=== PATIENT | female | born 1985 | race African-American/Black ===

== ENCOUNTER 2018-01-19 17:28 | Inpatient (IN) | payer OTHER ==
[~2018-01-19] VITALS: Ht 152.4 cm; Wt 118.3 kg
[2018-01-19] MEDS ORDERED: SODIUM CHLORIDE FLUSH 10ML SYR IVF ONE (18:00)
[2018-01-19] MEDS ORDERED: SODIUM CHLORIDE 0.9% 1,000ML IVBOLUS ONE (18:00)
[2018-01-19 18:29] LABS: MICROSCOPIC INDICATED
[2018-01-19 18:37] LABS: CULTURE INDICATED? NO
[2018-01-19 19:15] LABS: PH, VENOUS 7.372 pH (7.320-7.420)
[2018-01-19 19:17] LABS: FIO2 RA %
[2018-01-19] MEDS ORDERED: ACETAMINOPHEN 325 MG TABLET ONE (19:18)
[2018-01-19 19:26] LABS: ANION GAP 10 mmol/L (5-15); CALCIUM 9.1 mg/dL (8.5-10.1); CHLORIDE 94 mmol/L (98-107); CREATININE 1.27 mg/dL (0.55-1.02)
[2018-01-19] MEDS ORDERED: PLEASE ENTER ALLERGIES MC SCH (19:30)
[2018-01-19] MEDS ORDERED: ACETAMINOPHEN 325 MG TABLET PO ONE (19:30)
[2018-01-19 19:31] LABS: BASOPHILS # (AUTO) 0.03 x10^3/uL (0-0.1); BASOPHILS % (AUTO) 0 % (0-1); EOSINOPHILS # (AUTO) 0.13 x10^3/uL (0-0.4); EOSINOPHILS % (AUTO) 2 % (1-7); LYMPHOCYTES # (AUTO) 2.24 x10^3/uL (1-3.4); LYMPHOCYTES % (AUTO) 25 % (22-44); MD NO; MEAN CORPUSCULAR HEMOGLOBIN 29.3 pg (27.0-34.8); MEAN CORPUSCULAR HGB CONC 32.7 g/dL (32.4-35.8); MEAN CORPUSCULAR VOLUME 89.4 fL (80-100); MEAN PLATELET VOLUME 11.4 fL (7.4-10.4); MONOCYTES # (AUTO) 0.89 x10^3/uL (0.2-0.8); MONOCYTES % (AUTO) 10 % (2-9); NEUTROPHILS # (AUTO) 5.71 x10^3/uL (1.8-6.8); NEUTROPHILS % (AUTO) 64 % (42-75); PLATELET COUNT 332 x10^3/uL (130-400); RED BLOOD COUNT 4.96 x10^6/uL (3.82-5.3); RED CELL DISTRIBUTION WIDTH 14.3 % (9.6-15.2)
[2018-01-19 19:42] LABS: ACETONE, SERUM Moderate(40mg/dL) mg/dL (Negative)
[2018-01-19] MEDS ORDERED: SODIUM CHLORIDE FLUSH 10ML SYR IVF PRN (20:30)
[2018-01-19] MEDS ORDERED: SODIUM CHLORIDE 0.45% 1,000 ML IV SCH (20:50)
[2018-01-19] MEDS ORDERED: D5%-0.45% NACL 1,000 ML IV PRN (20:50)
[2018-01-19] MEDS ORDERED: REGULAR INSULIN 62.5 UNITS in SODIUM CHLORIDE 0.9% 249.375 ML IV PRN (20:50)
[2018-01-19] MEDS ORDERED: INSULIN REGULAR 100 UNITS/ML, 3ML VIAL IVPush ONE (21:00)
[2018-01-19] MEDS ORDERED: ONDANSETRON 2MG/ML, 2ML IVPush PRN (21:00)
[2018-01-19 21:35] LABS: HEMOGLOBIN A1C 14.3 % (4.2-6.3)
[2018-01-19] MEDS ORDERED: ENOXAPARIN 40 MG/0.4 ML ONE (21:37)
[2018-01-19] MEDS ORDERED: INSULIN REGULAR 100 UNITS/ML, 3ML VIAL ONE (21:39)
[2018-01-19] MEDS: ENOXAPARIN 40 MG/0.4 ML SQ SCH (21:44)
[2018-01-19 22:34] VITALS: BP 136/86
[2018-01-19 23:47] LABS: ANION GAP 10 mmol/L (5-15); CALCIUM 8.9 mg/dL (8.5-10.1); CHLORIDE 101 mmol/L (98-107); CREATININE 0.92 mg/dL (0.55-1.02)
[2018-01-20 03:22] LABS: ANION GAP 8 mmol/L (5-15); CALCIUM 8.9 mg/dL (8.5-10.1); CHLORIDE 106 mmol/L (98-107); CREATININE 0.71 mg/dL (0.55-1.02)
[2018-01-20 04:00] VITALS: BP 126/41
[2018-01-20] MEDS ORDERED: POTASSIUM CHLORIDE 20 MEQ TAB.ER.PRT PO ONE ×2 (04:00→08:00)
[2018-01-20] MEDS ORDERED: SODIUM CHLORIDE 0.45% 1,000 ML IV SCH (04:00)
[2018-01-20] MEDS: INSULIN LISPRO 100 UNITS/ML, PEN SQ-INSULIN SCH ×4 (07:00→20:32)
[2018-01-20 07:08] LABS: ANION GAP 10 mmol/L (5-15); CALCIUM 8.5 mg/dL (8.5-10.1); CHLORIDE 103 mmol/L (98-107); CREATININE 0.68 mg/dL (0.55-1.02)
[2018-01-20 09:29] LABS: ACETONE, SERUM Moderate(40mg/dL) mg/dL (Negative)
[2018-01-20 12:54] VITALS: BP 127/83
[2018-01-20] MEDS: ACETAMINOPHEN 325 MG TABLET PO PRN (13:54)
[2018-01-20] MEDS: metFORMIN 500 MG TABLET PO SCH (17:19)
[2018-01-20 18:56] VITALS: BP 127/80
[2018-01-20] MEDS: ENOXAPARIN 40 MG/0.4 ML SQ SCH (20:08)
[2018-01-20] MEDS: SODIUM CHLORIDE 0.45% 1,000 ML IV SCH (20:09)
[2018-01-21 02:29] VITALS: BP 113/69
[2018-01-21 07:25] VITALS: BP 124/70
[2018-01-21] MEDS ORDERED: NYST15CR33 TP (10:27)
[2018-01-21] MEDS ORDERED: GLYB2.5T2 PO (10:27)
[2018-01-21] MEDS ORDERED: METF500T PO (10:27)
[2018-01-21] MEDS ORDERED: FLUC200T PO (10:27)
[2018-01-21] MEDS: INSULIN LISPRO 100 UNITS/ML, PEN SQ-INSULIN SCH ×2 (10:34→11:00)
[2018-01-21] MEDS: metFORMIN 500 MG TABLET PO SCH (10:35)
[2018-01-21] MEDS: ACETAMINOPHEN 325 MG TABLET PO PRN (10:38)
[2018-01-21] MEDS: SODIUM CHLORIDE 0.45% 1,000 ML IV SCH (14:00)
[2018-01-21 14:33] VITALS: BP 118/67
== END 2018-01-21 15:23 | disposition home or self-care (01) | DRG 638 ==
LOC: ED 19:34 → EDIP 20:01 → CCU 22:06 → 3NE 01-20 12:29 → DCLOUNGE 01-21 15:20
PROVIDERS: ADMIT Hospitalist; ATTEND Hospitalist
DX: E11.65 Type 2 diabetes mellitus with hyperglycemia (principal); E87.1 Hypo-osmolality and hyponatremia; Z68.43 Body mass index [BMI] 50.0-59.9, adult; E86.0 Dehydration; E66.01 Morbid (severe) obesity due to excess calories; B37.2 Candidiasis of skin and nail; F17.200 Nicotine dependence, unspecified, uncomplicated; N28.9 Disorder of kidney and ureter, unspecified; N76.0 Acute vaginitis
CPT/HCPCS: 36415; 80048; 81001; 82010; 82040; 82803; 82962; 83036; 83735; 83930; 84100; 84443; 84703; 85025; 87081; 96361; 96374; J1650; J1815; J7030; J7050